=== PATIENT | male | born 2000 | race Caucasian/White ===

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

== ENCOUNTER → 2018-03-01 | Day surgery (SDC) | payer OTHER ==
--- NOTE | 2018-02-27 14:06 | MH ---
cc: Randell Josue MD DATE OF ADMISSION: 03/01/2018 DATE OF : 2000 INDICATIONS: A 17-year-old male with history of chronic recurrent tonsillitis. The patient has had multiple infections, have not responded to medical therapy. Plan is for tonsillectomy. PAST MEDICAL HISTORY: ALLERGIES: NO KNOWN DRUG ALLERGIES. PHYSICAL EXAMINATION: GENERAL: Well-developed, well-nourished male, in no apparent distress. HEENT: Normocephalic and atraumatic. Extraocular motions intact. External ear canals clear. Lips, oral mucosa and oropharynx show no lesion. Tonsils 3+ with erythema. Nasal exam shows no lesion. CHEST: Clear to auscultation. HEART: Regular rate. ABDOMEN: Soft. EXTREMITIES: No lesions. NEUROLOGIC: Exam nonfocal. ASSESSMENT: A 17-year-old male with chronic, recurrent tonsillitis. PLAN: To undergo tonsillectomy. Risks and benefits were discussed with the patient and his mother. The risks include, but are not limited to those of anesthesia, bleeding, unfavorable scarring, velopharyngeal insufficiency, dehydration, depression, abscess, voice change, bleeding. The patient and his mother state they understand and accept the risks of the procedure. Randell Josue MD JPM/SB , 01:34 PM , 02:04 PM
[~2018-03-01] VITALS: Ht 185.4 cm; Wt 107.2 kg
[~2018-03-01] MED LIST changes: +*morphine SULFATE 10 MG/ML PERIprocedure ONLY ONE; +ACETAMINOPHEN 1000 MG/100 ML 100 ML IV ONE; +ACETAMINOPHEN 325MG/HYDROcodone 7.5MG/15ML UDC PO PRN; +ADDE20 PO; +CHLORHEXIDINE GLUCONATE 2 % 1 PACK (2 CLOTHS) TOPICAL PRN; +DEXAMETHASONE SOD PHOS 4 MG/ML VIAL IV ONE; +DO NOT ADM ANY ANTICOAGULANT DRUGS PRN; +LACTATED RINGER'S 1000 ML IV PRN; +LIDOCAINE HCL 1% PF 5 ML SYRINGE OTHER ONE; +METOPROLOL TARTRATE 25 MG TAB PO PRN; +MORPHINE SULFATE 4 MG/ML INJ IV PUSH PRN; +ONDANSETRON HCL 4 MG/2 ML VIAL IV ONE; +ONDANSETRON HCL 4 MG/2 ML VIAL ONE; +ONDANSETRON ODT 4 MG TAB PO PRN; +POVIDONE IODINE 5% (ANTISEPSIS KIT) 4 APPLICATIONS EACH NARE PRN; +PROPOFOL 200 MG/20 ML AMP IV ONE; +SODIUM CHLORID 0.9% 500 ML IV PRN; +SODIUM CHLORIDE 0.9% INJ 100 ML ONE; +SUCCINYLCHOLINE CHLORIDE 100 MG/5 ML SYRINGE IV PUSH ONE; +ceFAZolin INJ 1,000 MG VIAL ONE; +fentaNYL CITRATE 250 MCG/5 ML AMP ONE
[2018-03-01 08:03] LABS: AUTOMATED NEUTROPHIL # 3.7 TH/MM3 (1.8-7.7); BASOPHIL % 0.4 % (0.0-2.0); EOSINOPHIL # 0.3 TH/MM3 (0-0.4); EOSINOPHIL % 4.8 % (0.0-4.0); HEMATOCRIT 44.1 % (39.0-51.0); HEMOGLOBIN 14.9 GM/DL (13.0-17.0); LYMPH % 31.3 % (9.0-44.0); LYMPHOCYTE # 2.1 TH/MM3 (1.0-4.8); MEAN CELL VOLUME 87.9 FL (80.0-100.0); MEAN CORPUSCULAR HEMOGLOBIN 29.6 PG (27.0-34.0); MEAN CORPUSCULAR HGB CONC 33.7 % (32.0-36.0); MEAN PLATELET VOLUME 8.8 FL (7.0-11.0); MONO % 9.7 % (0.0-8.0); MONOCYTE # 0.7 TH/MM3 (0-0.9); NEUT % 53.8 % (16.0-70.0); PLATELET COUNT 231 TH/MM3 (150-450); RED BLOOD COUNT 5.02 MIL/MM3 (4.50-5.90); RED CELL DISTRIBUTION WIDTH 13.3 % (11.6-17.2); WHITE BLOOD COUNT 6.8 TH/MM3 (4.0-11.0)
--- NOTE | 2018-03-01 08:27 | MP ---
cc: Randell Josue MD DATE OF OPERATION: 03/01/2018 INDICATIONS: A 17-year-old male with chronic recurrent tonsillitis and tonsillar hypertrophy who has not responded to medical therapy. Plan is tonsillectomy. PREOPERATIVE DIAGNOSIS: Chronic, recurrent tonsillitis. POSTOPERATIVE DIAGNOSIS: Chronic, recurrent tonsillitis. PROCEDURE: Tonsillectomy. SUMMARY: The patient brought to the operating room, placed in the supine position, successfully placed under general anesthesia and prepared in the usual fashion for this procedure. The oral cavity exposed with a retractor. No submucous cleft. Right tonsil removed with Coblation technique. Superior and inferior left tonsil removed in a similar fashion. Both tonsil beds inspected for hemostasis obtained by suction cautery. The patient was suctioned. Retractor was removed. He was awakened and extubated and taken to the recovery in stable condition. Randell Josue MD JPM/DL , 08:17 AM , 08:26 AM
[2018-03-01 11:30] VITALS: BP 127/69; PULSE 75; RESP 18; TEMP 98.6; O2SAT 98
== END | disposition home or self-care (01) ==
LOC: HSDC 06:17
PROVIDERS: ATTEND Specialist
DX: J35.01 Chronic tonsillitis (principal); Z01.818 Encounter for other preprocedural examination
CPT/HCPCS: 00170; 42826; 85025; 88304; J0131; J0330; J0690; J1100; J2270; J2405; J3010; J7120